=== PATIENT | male | born 1955 | race Caucasian/White ===

== ENCOUNTER 2016-04-20 07:21 | Outpatient (CLI) | payer OTHER, SELFPAY ==
[2016-04-20 08:26] LABS: ALT (SGPT) 43 U/L (0-55); AST (SGOT) 27 U/L (5-34); Albumin 4.5 g/dL (3.4-4.8); Alkaline Phosphatase 68 U/L (40-150); Anion Gap 15 mmol/L (10-20); BUN (Urea Nitrogen) 20 mg/dL (8.4-25.7); Bilirubin, Total 0.4 mg/dL (0.2-1.2); Calc. Creatinine Clearance 0 mL/min (70-130); Calcium 9.1 mg/dL (7.8-10.44); Carbon Dioxide 21 mmol/L (23-31); Cardiac Risk 3.2 (Less than 4.5); Chloride 106 mmol/L (98-107); Cholesterol 152 mg/dL (< 200 Desired); Estimated GFR-MDRD 74; Globulin 2.3 g/dL (2.4-3.5); Glucose 105 mg/dL (80-115); HDL Cholesterol 47 mg/dL (>60 Neg Risk); LDL Cholesterol, Calculated 79 mg/dL; Potassium 4.1 mmol/L (3.5-5.1); Protein, Total 6.8 g/dL (5.8-8.1); Sodium 138 mmol/L (136-145); Triglycerides 130 mg/dL (Less than 150)
== END 2016-04-20 07:22 | disposition home or self-care (01) ==
LOC: MADLAB 07:21
PROVIDERS: ATTEND Internal Medicine Cardiovascular Disease
DX: I25.10 Atherosclerotic heart disease of native coronary artery without angina pectoris (principal)
CPT/HCPCS: 36415; 80053; 80061

== ENCOUNTER 2016-11-01 07:35 | Emergency (ER) | payer OTHER ==
[~2016-11-01 07:35] MED LIST: Nitroglycerin 0.4 MG TAB 1 EACH ONE
[2016-11-01 08:06] LABS: #Basophils 0.1 thou/uL (0.0-0.2); #Eosinphils 0.4 thou/uL (0.0-0.7); #Lymphocytes 1.3 thou/uL (1.20-3.40); #Monocytes 0.8 thou/uL (0.11-0.59); #Neutrophils 7.9 thou/uL (1.40-6.50); %Eosinophils 3.5 % (0.0-10.0); %Lymphocytes 12.5 % (21.0-51.0); %Monocytes 7.2 % (0.0-10.0); %Neutrophils 75.8 % (42.0-75.0); Hemoglobin 16.1 g/dL (14.0-18.0); Mean Corpuscular HGB CONC 33.4 g/dL (32.0-36.0); Mean Platelet Volume 6.6 fL (7.4-10.4); Platelet Count 217 thou/uL (130-400); RBC Distribution Width 11.1 % (11.5-14.5); Red Blood Cell (RBC) Count 5.17 mill/uL (4.70-6.10); White Blood Cell (WBC) Count 10.4 thou/uL (4.8-10.8)
[2016-11-01 08:09] LABS: PTT 24.8 SEC (22.9-36.1)
[2016-11-01] MEDS ORDERED: Aspirin 325 MG TAB ONE (08:09)
[2016-11-01] MEDS ORDERED: Nitroglycerin 0.4 MG TAB 1 EACH ONE (08:09)
[2016-11-01 08:18] LABS: ALT (SGPT) 46 U/L (8-55); AST (SGOT) 33 U/L (5-34); Albumin 4.8 g/dL (3.4-4.8); Alkaline Phosphatase 64 U/L (40-150); Anion Gap 18 mmol/L (10-20); BUN (Urea Nitrogen) 18 mg/dL (8.4-25.7); Bilirubin, Total 0.7 mg/dL (0.2-1.2); CK (CPK) 350 U/L (30-200); Calc. Creatinine Clearance 0 mL/min (70-130); Calcium 9.3 mg/dL (7.8-10.44); Carbon Dioxide 23 mmol/L (23-31); Chloride 104 mmol/L (98-107); Estimated GFR-MDRD 70; Globulin 2.7 g/dL (2.4-3.5); Glucose 101 mg/dL (80-115); Potassium 4.4 mmol/L (3.5-5.1); Protein, Total 7.5 g/dL (5.8-8.1); Sodium 141 mmol/L (136-145)
[2016-11-01 08:23] LABS: CKMB 2.9 ng/mL (0-6.6); Troponin I Less than 0.010 ng/mL (< 0.028)
--- NOTE | 2016-11-01 09:10 | RAD ---
PORTABLE CHEST: HISTORY: Chest pain. FINDINGS: The lungs are clear. The heart and mediastinum appear normal. Postop sternotomy changes are noted. IMPRESSION: Unremarkable portable chest. POS: [facility]
== END 2016-11-01 09:35 | disposition short-term general hospital (02) ==
LOC: MADERS 07:35
DX: I20.0 Unstable angina (principal); I10 Essential (primary) hypertension; I25.2 Old myocardial infarction; F41.9 Anxiety disorder, unspecified; F17.210 Nicotine dependence, cigarettes, uncomplicated; Z79.82 Long term (current) use of aspirin; E78.5 Hyperlipidemia, unspecified; Z79.899 Other long term (current) drug therapy; Z95.1 Presence of aortocoronary bypass graft
CPT/HCPCS: 36415; 71010; 80053; 82550; 82553; 83880; 84484; 85025; 85610; 85730; 93005; 94760

== ENCOUNTER 2018-01-03 07:09 | Outpatient (CLI) | payer OTHER ==
[2018-01-03 07:58] LABS: ALT (SGPT) 48 U/L (8-55); AST (SGOT) 32 U/L (5-34); Albumin 4.7 g/dL (3.4-4.8); Alkaline Phosphatase 63 U/L (40-150); Anion Gap 13 mmol/L (10-20); BUN (Urea Nitrogen) 19 mg/dL (8.4-25.7); Bilirubin, Total 0.3 mg/dL (0.2-1.2); Calc. Creatinine Clearance 0 mL/min (70-130); Calcium 9.5 mg/dL (7.8-10.44); Carbon Dioxide 21 mmol/L (23-31); Cardiac Risk 3.3 (Less than 4.5); Chloride 105 mmol/L (98-107); Cholesterol 156 mg/dl (< 200 Desired); Estimated GFR-MDRD 73; Globulin 2.7 g/dL (2.4-3.5); Glucose 107 mg/dL (80-115); HDL Cholesterol 48 mg/dL (>60 Neg Risk); LDL Cholesterol, Calculated 92 mg/dL; Potassium 4.4 mmol/L (3.5-5.1); Protein, Total 7.4 g/dL (5.8-8.1); Sodium 135 mmol/L (136-145); Triglycerides 80 mg/dL (Less than 150)
== END 2018-01-03 07:10 | disposition home or self-care (01) ==
LOC: MADLABBHPM 07:09
PROVIDERS: ATTEND Internal Medicine Cardiovascular Disease
DX: E78.00 Pure hypercholesterolemia, unspecified (principal); I10 Essential (primary) hypertension
CPT/HCPCS: 36415; 80053; 80061

== ENCOUNTER 2019-02-16 07:08 | Outpatient (CLI) | payer OTHER ==
[2019-02-16 07:39] LABS: ALT (SGPT) 33 U/L (8-55); AST (SGOT) 26 U/L (5-34); Albumin 4.3 g/dL (3.4-4.8); Alkaline Phosphatase 60 U/L (40-110); Anion Gap 14 mmol/L (10-20); BUN (Urea Nitrogen) 18 mg/dL (8.4-25.7); Bilirubin, Total 0.3 mg/dL (0.2-1.2); Calc. Creatinine Clearance 0 mL/min (70-130); Carbon Dioxide 22 mmol/L (23-31); Cardiac Risk 2.2 (Less than 4.5); Chloride 108 mmol/L (98-107); Cholesterol 119 mg/dl (< 200 Desired); Estimated GFR-MDRD 83; Globulin 2.3 g/dL (2.4-3.5); Glucose 100 mg/dL (80-115); HDL Cholesterol 55 mg/dL (>60 Neg Risk); LDL Cholesterol, Calculated 55 mg/dL; Potassium 4.2 mmol/L (3.5-5.1); Protein, Total 6.6 g/dL (5.8-8.1); Sodium 140 mmol/L (136-145); Triglycerides 46 mg/dL (Less than 150)
== END 2019-02-16 07:09 | disposition home or self-care (01) ==
LOC: MADLAB 07:08
PROVIDERS: ATTEND Internal Medicine Cardiovascular Disease
DX: I25.10 Atherosclerotic heart disease of native coronary artery without angina pectoris (principal)
CPT/HCPCS: 36415; 80053; 80061

== ENCOUNTER 2019-11-08 15:51 | Emergency (ER) | payer OTHER ==
[2019-11-08] MEDS ORDERED: Acetaminophen 500 MG TAB ONE (16:14)
[2019-11-08] MEDS ORDERED: Sodium Chloride 0.9% 2,000 ML ONE (16:39)
--- NOTE | 2019-11-08 16:45 | RAD ---
XR Chest 1 View Portable HISTORY: Fever and cough COMPARISON: 11/01/2016 FINDINGS: The heart size is normal. Changes of median sternotomy and again seen. The lungs are well e xpanded without focal areas of consolidation, pneumothorax or pleural effusions. IMPRESSION: No radiographic evidence of acute cardiopulmonary process.
[2019-11-08 17:19] LABS: #Basophils 0.1 thou/uL (0.0-0.2); #Lymphocytes 0.4 thou/uL (1.20-3.40); #Monocytes 0.8 thou/uL (0.11-0.59); #Neutrophils 16.5 thou/uL (1.40-6.50); %Basophils 0.4 % (0.0-1.0); %Eosinophils 0.1 % (0.0-10.0); %Lymphocytes 2.1 % (21.0-51.0); %Monocytes 4.4 % (0.0-10.0); Hemoglobin 12.3 g/dL (14.0-18.0); Mean Corpuscular HGB CONC 33.8 g/dL (32.0-36.0); Mean Corpuscular Hemoglobin 30.9 pg (27.0-31.0); Mean Corpuscular Volume 91.4 fL (78.0-98.0); Mean Platelet Volume 6.4 fL (7.4-10.4); Platelet Count 202 thou/uL (130-400); RBC Distribution Width 10.8 % (11.5-14.5); Red Blood Cell (RBC) Count 3.98 mill/uL (4.70-6.10); White Blood Cell (WBC) Count 17.8 thou/uL (4.8-10.8)
[2019-11-08 17:22] LABS: ALT (SGPT) 34 U/L (8-55); AST (SGOT) 20 U/L (5-34); Albumin 4.2 g/dL (3.4-4.8); Alkaline Phosphatase 59 U/L (40-110); Anion Gap 16 mmol/L (10-20); BUN (Urea Nitrogen) 20 mg/dL (8.4-25.7); Bilirubin, Total 0.4 mg/dL (0.2-1.2); Calc. Creatinine Clearance 0 mL/min (70-130); Calcium 8.9 mg/dL (7.8-10.44); Carbon Dioxide 19 mmol/L (23-31); Chloride 105 mmol/L (98-107); Estimated GFR-MDRD 62; Globulin 2.5 g/dL (2.4-3.5); Glucose 100 mg/dL (80-115); Potassium 3.4 mmol/L (3.5-5.1); Protein, Total 6.7 g/dL (5.8-8.1); Sodium 137 mmol/L (136-145)
[2019-11-08 18:11] LABS: Bilirubin Negative (Negative); Blood, Urine Trace (Negative); Clarity Clear (Clear); Glucose, Urine (Dipstick) Negative (Negative); Ketone, Urine Negative (Negative); Leukocyte Negative (Negative); Nitrite Negative (Negative); Protein, Urine (Dipstick) Negative (Neg-Trace); Urobilinogen 0.2 mg/dL (Less than 2); pH, Urine 5.5 (5.0-9.0)
[2019-11-08 18:19] LABS: Bacteria/HPF Rare-Few HPF (None Seen); RBC/HPF 0-3 HPF (0-3); Squamous Epithelial 0-3 HPF (0-3); WBC/HPF None Seen HPF (0-3)
[2019-11-09 12:05] LABS: SARS-CoV-2 MS2 Positive; SARS-CoV-2 N Gene Negative; SARS-CoV-2 S Gene Negative; SARS-CoV-2 by NAA Not Detected (NotDetected); SARS-CoV-2 orf1ab Negative
== END 2019-11-08 19:09 | disposition home or self-care (01) ==
LOC: MADERS 15:51
DX: R50.9 Fever, unspecified (principal); Z20.828 Contact with and (suspected) exposure to other viral communicable diseases; R42 Dizziness and giddiness; R53.1 Weakness; E78.5 Hyperlipidemia, unspecified; I10 Essential (primary) hypertension; I25.2 Old myocardial infarction; Z86.73 Personal history of transient ischemic attack (TIA), and cerebral infarction without residual deficits; F41.9 Anxiety disorder, unspecified; F17.210 Nicotine dependence, cigarettes, uncomplicated
CPT/HCPCS: 36415; 71045; 80053; 81003; 81015; 83605; 85025; 87040; 87635; 87804; 96360; J7050; U0003

== ENCOUNTER 2024-12-12 08:16 | Outpatient (CLI) | payer MEDICARE ==
[2024-12-12 08:51] LABS: #Basophils 0.1 thou/uL (0.0-0.2); #Eosinophils 0.4 thou/uL (0.0-0.7); #Lymphocytes 1.1 thou/uL (1.20-3.40); #Monocytes 0.7 thou/uL (0.11-0.59); #Neutrophils 6.3 thou/uL (1.40-6.50); %Basophils 1.2 % (0.0-1.0); %Eosinophils 5.0 % (0.0-10.0); %Lymphocytes 13.0 % (21.0-51.0); %Monocytes 8.4 % (0.0-10.0); %Neutrophils 72.3 % (42.0-75.0); Hematocrit 41.0 % (42.0-52.0); Hemoglobin 13.5 g/dL (14.0-18.0); Mean Corpuscular Hemoglobin 31.1 pg (27.0-31.0); Mean Corpuscular Volume 94.3 fl (78.0-98.0); Platelet Count 254 10x3/uL (130-400); Red Blood Cell (RBC) Count 4.35 mill/uL (4.70-6.10); White Blood Cell (WBC) Count 8.8 10x3/uL (4.8-10.8)
[2024-12-12 09:06] LABS: ALT (SGPT) 36 U/L (Less than 45); AST (SGOT) 47 U/L (11-34); Albumin 4.7 g/dL (3.1-4.5); Alkaline Phosphatase 52 U/L (40-110); Anion Gap 17 mmol/L (10-20); BUN (Urea Nitrogen) 22 mg/dL (8.4-25.7); Bilirubin, Total 0.5 mg/dL (0.3-1.2); Calc. Creatinine Clearance 0 mL/min (70-130); Calcium 9.2 mg/dL (7.8-10.44); Carbon Dioxide 20 mmol/L (23-31); Cardiac Risk 1.9 (Less than 4.5); Chloride 101 mmol/L (98-107); Cholesterol 134 mg/dl (< 200 Desired); Globulin 2.7 g/dL (2.4-3.5); Glucose 94 mg/dL (80-115); HDL Cholesterol 72 mg/dL (>60 Neg Risk); LDL Cholesterol, Calculated 55 mg/dL; Potassium 4.7 mmol/L (3.5-5.1); Sodium 133 mmol/L (136-145); Triglycerides 36 mg/dL (Less than 150)
[2024-12-12 09:26] LABS: Thyroid Stimulating Hormone 2.3204 uIU/mL (0.35-4.94)
[2024-12-12 16:45] LABS: PSA-Asymptomatic (SCREENING) 1.728 ng/mL (0-4.0)
== END 2024-12-12 08:17 | disposition home or self-care (01) ==
LOC: MADLAB 08:16
PROVIDERS: ATTEND Nurse Practitioner Family
DX: Z00.00 Encounter for general adult medical examination without abnormal findings (principal); Z13.1 Encounter for screening for diabetes mellitus; Z12.5 Encounter for screening for malignant neoplasm of prostate; Z13.29 Encounter for screening for other suspected endocrine disorder; I10 Essential (primary) hypertension; I25.2 Old myocardial infarction; E78.2 Mixed hyperlipidemia; R63.6 Underweight; Z95.5 Presence of coronary angioplasty implant and graft; Z86.73 Personal history of transient ischemic attack (TIA), and cerebral infarction without residual deficits
CPT/HCPCS: 36415; 80053; 80061; 84443; 85025; G0103